=== PATIENT | female | born 1975 | race Two or more races ===

== ENCOUNTER 2017-09-03 12:23 | Emergency (ER) | payer BC, OTHER ==
[~2017-09-03] VITALS: Ht 167.6 cm; Wt 81.6 kg
[2017-09-03] MEDS ORDERED: HYDROmorphone HCL 2 MG/ML VL IV ONE (12:30)
[2017-09-03] MEDS ORDERED: SUMAtriptan SUCCINATE 6 MG/0.5 ML VL SC ONE (12:30)
[2017-09-03] MEDS ORDERED: ONDANSETRON HCL 4 MG/2 ML VIAL IV ONE (12:30)
[2017-09-03 12:34] VITALS: BP 180/90
[2017-09-03] MEDS ORDERED: ONDANSETRON ODT 4 MG TAB PO ONE (13:00)
== END 2017-09-03 14:28 | disposition home or self-care (01) ==
LOC: ER 12:23
DX: G43.909 Migraine, unspecified, not intractable, without status migrainosus (principal)
CPT/HCPCS: 70450; 93005; 96372; 96374; 99284; J1170; J3030; Q0162